=== PATIENT | female | born 1995 | race Two or more races ===

== ENCOUNTER 2025-03-07 15:33 | Emergency (ER) | payer MEDICAID, SELFPAY ==
[2025-03-07 15:33] VITALS: BMI 25.8
[2025-03-07 15:55] VITALS: BP 126/85; PULSE 93; RESP 18; TEMP 36.9; O2SAT 99
--- NOTE | 2025-03-07 17:03 | XR_ITS ---
Examination: Abdomen sonogram, Limited Date and time of exam: March 07, 2025, 1717 hrs. Indications: Right upper abdominal pain beginning yesterday. Technique: Real-time jacome scale transabdominal sonographic images of the upper abdomen obtained. Findings: Normal gallbladder. Normal common bile duct 0.3 cm. Pancreatic head 2.5 cm. Liver 12.6 cm smooth contour. Normal hepatopedal portal venous flow. Patent IVC. Impression: Negative study
--- NOTE | 2025-03-07 17:04 | PD.EDRME ---
Rapid Medical Screening Exam RME Arrival date/time: 03/07/25 15:33 This is a 29-year-old female that comes into the emergency room with complaints of right upper quadrant pain. Patient states has been going on for over a week but last night it was very intense. Patient was sent here by the clinic today. Patient denies past medical history. I have greeted and performed a focused initial assessment of this patient. Initial appropriate labs ordered at this time. A comprehensive ED assessment and evaluation of the patient and analysis of all test and completion of medical decision making process will be conducted by additional ED provider. Chief Complaint: Abdominal Pain Time Seen by Provider: 03/07/25 17:00 Vital signs: Vital Signs Temperature 98.5 F 03/07/25 15:55 Pulse Rate 93 03/07/25 15:55 Respiratory Rate 18 03/07/25 15:55 Blood Pressure 126/85 H 03/07/25 15:55 Pulse Oximetry (%) 99 03/07/25 15:55 Oxygen Delivery Method Room Air 03/07/25 15:55
[2025-03-07 17:27] LABS: Basophils # (Auto) 0.1 Thou/mm3 (0.0-0.2); Basophils % (Auto) 1 % (0-2.5); Eosinophils # (Auto) 0.1 Thou/mm3 (0.0-0.5); Eosinophils % (Auto) 1 % (0-10); Hematocrit 28.8 % (36.0-46.0); Hemoglobin 8.9 g/dL (12.0-16.0); Immature Granulocytes Auto 0.04 Thou/mm3 (0.00-0.00); Lymphocytes # (Auto) 2.1 Thou/mm3 (1.0-4.8); Lymphocytes % (Auto) 20 % (10-50); Mean Corpuscular HGB Conc 30.9 g/dl (31.0-37.0); Mean Corpuscular Hemoglobin 24.6 pg (25.0-35.0); Mean Corpuscular Volume 80 fL (80-100); Monocytes # (Auto) 0.4 Thou/mm3 (0.0-0.8); Monocytes % (Auto) 4 % (0-12); Neutrophils # (Auto) 7.6 Thou/mm3 (1.8-7.7); Neutrophils % (Auto) 73 % (37-80); Nucleated Red Blood Cell # 0.00 Thou/mm3 (0.00-0.00); Nucleated Red Blood Cell % 0 /100 WBC (0); Platelet Count 469 Thou/mm3 (140-440); RDW Standard Deviation 42.3 fL (36.4-46.3); Red Blood Count 3.62 Miln/mm3 (4.00-5.20); White Blood Count 10.4 Thou/mm3 (3.6-11.0)
[2025-03-07 17:28] LABS: Collection Type, Urine Voided
[2025-03-07 17:47] LABS: HCG Qualitative,Urine Negative
[2025-03-07 17:50] LABS: Bacteria,Urine Rare; Bilirubin,Urine Negative (Negative); Blood,Urine Negative (Negative); Color,Urine Lt-Yellow (Lt Yel-Yel); Glucose, Urine Negative (Negative); Ketones,Urine Negative (Negative); Leukocyte Esterase,Urine Positive (Negative); Nitrite,Urine Negative (Negative); PH,Urine 6.5 (5.0-7.0); Protein,Urine Negative (Neg - Trace); RBC,Urine 11 /hpf (0-3); Specific Gravity,Urine 1.011 (1.001-1.035); Squamous Epithelial Cell,Urine 3 /hpf (0-5); Urobilinogen,Urine Negative mg/dL (0.0-1.0); WBC,Urine 22 /hpf (0-5)
[2025-03-07 17:55] LABS: Clarity,Urine Hazy (Clear/Hazy); Culture Indicated,Urine Yes
[2025-03-07 17:59] LABS: Alanine Aminotransferase < 7 U/L (10-49); Albumin, Serum 4.7 gm/dL (3.5-5.0); Albumin/Globulin Ratio 1.6 (1.2-2.2); Alkaline Phosphatase 81 U/L (46-116); Anion Gap 11 (7-16); Aspartate Amino Transferase 17 U/L (0-34); BUN/Creatinine Ratio 11 Ratio (12-20); Bilirubin,Total 0.8 mg/dL (0.3-1.2); Blood Urea Nitrogen 9 mg/dL (9-23); Calcium 9.9 mg/dL (8.3-10.6); Calcium (Corrected) 9.9 mg/dL (8.5-10.1); Carbon Dioxide 26.4 mMol/L (20.0-31.0); Chloride 105 mMol/L (98-107); Creatinine (Component) 0.8 mg/dL (0.6-1.3); Estimated Creatinine Clearance 80.5 mL/min (>60); Globulin 2.9 gm/dL (2.3-3.5); Glucose 98 mg/dL (74-106); Lipase 35 U/L (12-53); Osmolality,Calculated 281 (275-295); Potassium 4.0 mMol/L (3.4-5.1); Sodium 142 mMol/L (136-145); Total Protein 7.6 gm/dL (5.7-8.2); eGFR > 60 See Note
--- NOTE | 2025-03-07 18:28 | EDNOTE_ITS ---
ED Abdominal Pain RME/HPI General Chief Complaint: Abdominal Pain Stated complaint: RIGHT UPPER ABD PAIN FOR 1 WEEK Time seen by provider: 03/07/25 17:00 Arrival date/time: 03/07/25 15:33 RME / HPI RME / HPI narrative: 29-year-old female that comes into the emergency room with complaints of right upper quadrant pain. Patient states has been going on for over a week but last night it was very intense. Patient also complaining of frequency but denies any dysuria. Denies any back pain. Patient was sent here by the clinic today. Patient denies past medical history. No fever no vomiting Related Data Previous Rx's ?Medication ?Instructions ?Recorded cephalexin 500 mg capsule 500 mg PO Q8H 7 days #21 cap s 03/07/25 Allergies Allergy/AdvReac Type Severity Reaction Status Date / Time No Known Allergies Allergy Unverified 03/07/25 15:35 Review of Systems Review of Systems Narrative Review of Systems: Review of system reviewed and within normal limits except mentioned in HPI ED Exam Narrative Physical exam: VITAL SIGNS: Reviewed. GENERAL APPEARANCE: Alert and interactive, follows commands, no acute distress, HEAD AND FACE: Non-traumatic. ENT: PERRL, pink conjunctivitis, eyelid no trauma, Mucous membrane moist. NECK: Supple, nontender, no nuchal rigidity. CHEST: No tenderness, no crepitus, no paradoxical movement, no retractions. LUNGS: Clear, well ventilated, symmetric, no rales, no wheezing, no ronchi, no stridor, good breath sounds bilaterally. HEART: Regular rate, regular rhythm, no murmur, no gallops. ABDOMEN: Soft, positive bowel sounds, nondistended, no guarding, right upper quadrant tenderness, no rebound, no masses, RECTAL: Deferred. GENITAL: Deferred. NEUROLOGICAL: Gross motor function intact sensory function intact, Appropriate for age. MUSCULOSKELETAL: low back nontender, full range of motion. EXTREMITIES: Nontender, full range of motion. SKIN: Color pink, dry, no rash, no lacerations, no abrasions, no contusions. LYMPHATICS: Deferred. Course Quality Measures none Orders Category Date Time Status US abdomen limited Stat Exams 03/07/25 17:03 Completed CBC Stat Lab 03/07/25 17:14 Completed Comprehensive Metabolic Panel Stat Lab 03/07/25 17:14 Completed HCG Qualitative,Urine Stat Lab 03/07/25 17:10 Completed Lipase Stat Lab 03/07/25 17:14 Completed Urinalysis, C/S if Indicated Stat Lab 03/07/25 17:10 Completed Urine Culture Stat Lab 03/07/25 17:10 Received Vital Signs Vital signs: Vital Signs Temperature 98.5 F 03/07/25 15:55 Pulse Rate 93 03/07/25 15:55 Respiratory Rate 18 03/07/25 15:55 Blood Pressure 126/85 H 03/07/25 15:55 Pulse Oximetry (%) 99 03/07/25 15:55 Oxygen Delivery Method Room Air 03/07/25 15:55 Abdominal Pain MDM [facility] Narrative [facility] Narrative:: 29-year-old female that comes into the emergency room with complaints of right upper quadrant pain. Patient states has been going on for over a week but last night it was very intense. Patient also complaining of frequency but denies any dysuria. Denies any back pain. Patient was sent here by the clinic today. Patient denies past medical history. No fever no vomiting Ultrasound gallbladder came back unremarkable. Patient's workup including CMP all came back unremarkable except for UTI. Results discussed with the patient. Patient was advised to return to emergency room for worsening of symptoms. I will send the patient home on Keflex for UTI. Patient data External records reviewed:: None Clinical information provided by:: patient Social determinants that could affect healthcare access:: none Patient has the following chronic illnesses:: None How is presenting disease/condition affected by chronic disease/condition?: no chronic disease Evaluation data The following diagnostics were reviewed and interpreted by me:: lab results and radiology exam(s) Lab and/or radiology exams considered but not ordered:: None Interpretation Summary: See results [facility] Medications / Prescriptions Medications or Prescriptions considered but not ordered:: None Medication administrations:: None Consultations Consultation(s) initiated? (list below): No Diagnosis Differential diagnosis abdominal pain: abdominal pain, gastroenteritis and other (Right upper quadrant pain, UTI) Most likely diagnosis given after review of the tests above:: Abdominal pain, UTI Admission Indicated Admission indicated?: not indicated Admission Request Was there a request for admission?: No Disposition Plan Disposition Plan: Discharge Discharge Attestation Discharge Attestation: The patient was given an opportunity to ask questions and understood the disch arge instructions. Discharge instructions specifically effects, indications for sooner follow up or return to the emergency department, and the expected course of current diagnosis. Patient condition: Stable Discharge Plan Plan Patient Disposition: HOME (Self Care) Discharge Disposition comment: Stable Prescriptions/Referrals Prescriptions/Med Rec: New cephalexin 500 mg capsule 500 mg PO Q8H 7 Days Qty: 21 0RF Referrals: Darling Jurado PA-C [Primary Care Provider] - In 1 week Problem List Clinical Impression: Abdominal pain, Urinary tract infection Patient/Caregiver Discharge Instructions Discharge Activity: activity as tolerated Education Materials: Understanding Urinary Tract ... Additional Instructions: Thank you for the opportunity for serving you today. You are stable for discharged . You are advised to: Follow-up with your PCP in 1 to 2 days Return to ED for worsening of symptoms Increase oral fluids Take medication as prescribed You can take [id number] Tylenol as needed for pain Print Language: Setswana Stand Alone Forms: Jesi Award Info., Patient Portal Info Letter ROSANNE/ANTONIO Supervising Physician LUIS E Supervising Physician: MD loren
== END 2025-03-07 18:33 | disposition home or self-care (01) ==
PROVIDERS: Nurse Practitioner Family; Emergency Provider Emergency Medicine; PCP Physician Assistant
DX: R10.11 Right upper quadrant pain (principal); N39.0 Urinary tract infection, site not specified
CPT/HCPCS: 36415; 76705; 80053; 81001; 81025; 83690; 85025; 87086; 99283